=== PATIENT | female | born 1935 | race Caucasian/White ===

== ENCOUNTER → 2017-10-22 | Outpatient (CLI) | payer OTHER ==
[2016-08-17 14:19] VITALS: BP 107/60
--- NOTE | 2017-10-22 11:43 | MG ---
HISTORY: Screening, history of left axillary B-cell lymphoma post radiation/chemotherapy in 2017 Comparison: 05/30/2015, 07/24/2016 FINDINGS: CC and MLO projections of the right and left breast were obtained. Scattered fibroglandular tissue i s present. No significant architectural distortion, mass or clustered microcalcifications can be obs erved to suggest malignancy. No skin thickening or nipple retraction is appreciated. Interval resol ution of previous left axillary lymphadenopathy. Benign calcifications are present. IMPRESSION: NO RADIOGRAPHIC EVIDENCE OF MALIGNANCY. ACR CATEGORY 2: Benign findings. FOLLOW-UP EXAM 1 YEAR. Diagnostic CAD was utilized and reviewed. * 0 (ZERO) - ASSESSMENT INCOMPLETE; ADDITIONAL IMAGING IS NEEDED. * 1/1 (ONE) - NEGATIVE. * 2/II (TWO) - BENIGN FINDINGS. * 3/III (THREE) - PROBABLY BENIGN FINDING; SHORT INTERVAL FOLLOW-UP SUGGESTED. * 4/IV (FOUR) - SUSPICIOUS ABNORMALITY; BIOPSY SHOULD BE CONSIDERED. * 5/V - HIGHLY SUSPICIOUS OF MALIGNANCY; BIOPSY SHOULD BE PERFORMED. A NEGATIVE X-RAY REPORT SHOULD NOT DELAY BIOPSY IF A DOMINANT OR CLINICALLY SUSPICIOUS MASS IS PRESENT; 4 TO 8 PERCENT OF CANCERS ARE NOT IDENTIFIED BY X-RAY. A NEGA TIVE REPORT MAY REINFORCE THE CLINICAL IMPRESSION. ADENOSIS AND DENSE BREASTS MAY OBSCURE AN UNDERLY ING NEOPLASM. Reported By:
== END ==
LOC: RAD 09:50
PROVIDERS: ATTEND Internal Medicine Medical Oncology
DX: Z12.31 Encounter for screening mammogram for malignant neoplasm of breast (principal)
CPT/HCPCS: 77067

== ENCOUNTER 2019-04-13 22:28 | Observation (INO) ==
[2019-04-13 23:05] VITALS: BMI 27.4
--- NOTE | 2019-04-13 23:13 | DR.CP ---
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 These spells have been recurring for the last 2 months. She describes these as a warm burning sensation in the upper abdomen with associated dyspnea but no nausea or vomiting. She states that her BP would get elevated while her pulse drops. She has an apt. to see a day worker on 04/15/19. Reviewed Nurses Notes Review: Yes Source History Provided: Patient Mode of Arrival Mode of Arrival: Ambulatory Timing Came on: Gradually Pain: Resolved Duration Duration: Intermittent How lon Duration: Weeks Location Chest Pain Radiation Location: None Context Onset: At rest Cardiac Risk Factors: HTN PE Risk Factors: None History of: Similar pain in the past Quality Quality: Burning Modifying Factors Worsens: Nothing Impoves: Nothing PMH PMH Past Surgical History: Yes Surgical History: Appendectomy, Cholecystectomy and Hysterectomy Family History Family Medical History: Diabetes Mellitus, [place], Heart Failure and Hypertension Social History Do you use any recreational Drugs:: No ROS Review of Systems Constitutional: No Symptoms Reported Eyes: No Symptoms Reported ENTM: No Symptoms Reported Respiratoy: Short of Breath Cardiovascular: No Symptoms Reported Gastrointestinal/Abdominal: Abdominal Pain (epigastric, burning ) Genitourinary: No Symptoms Reported Neurological: No Symptoms Reported Musculoskeletal: No Symptoms Reported Integumentary: No Symptoms Reported Hematologic/Lymphatic: No Symptoms Reported Endocrine: No Symptoms Reported Psychiatric: No Symptoms Reported PE Vitals Vitals: Temperature 98.9 F Pulse Rate 62 Respiratory Rate 27 Blood Pressure [Left Arm] 107/60 Blood Pressure [Right Arm] 142/72 Blood Pressure 168/74 O2 Sat by Pulse Oximetry 82 General Limitations: No Limitations General Appearance: Alert and In No Apparent Distress Head Head Exam: Normal Inspection, Atraumatic and Normocephalic Eyes Eye exam: Normal Appearance and EOMI ENT ENT Exam: Normal Exam, Normal Oropharynx and Mucous Membranes Moist Chest Chest Inspection: Normal Inspection and Symmetric Chest Wall Rise Respiratory Respiratory Exam: Normal Lung Sounds Bilat Cardiovascular Cardiovascular Exam: Regular Rate, Normal Rhythm, Normal Heart Sounds, +S1 and +S2; negative Bradycardia, Tachycardia, Irregular Rhythm, Systolic Murmur, Diastolic Murmur, Rubs, Gallop, Clicks, JVD, +S3 and +S4 Pulse: Normal Edema: Normal Abdominal Exam Abdominal Exam: Normal Inspection, Normal Bowel Sounds and Soft; negative Distention, Tenderness, Guarding, Rebound, Rigidity, Dimnished Bowel Sounds, Hyperactive Bowel Sounds, Hypoactive Bowel Sounds, Organomegaly, Trauma, Incision, Ascites, Mass, Bruit, Pulsatile Mass, Hernia and Other Extremities Extremities Exam: Normal Inspection and Full ROM Back Back Exam: Normal Inspection and Full ROM Neurologic Neurological Exam: Alert and Oriented X3 Psychiatric Psychiatric Exam: Normal Affect and Normal Mood Skin Skin Exam: Dry and Normal Color MDM Differential Diagnosis Differential Diagnosis: Chest Wall Pain, CHF, Esophageal Reflux/Spasm, Gastritis, Myocardial Infarction and Pancreatitis COURSE Reevaluation 1st: Improved 2nd: Resolved Education/Counseling Education/Counseling: Patient, Education and Counseling Educated On: Treatment, Diagnosis, Prognosis and Needs for Follow Up ROR Labs Reviewed Laboratory Results Reviewed?: Yes Result Diagrams: 04/13/19 23:07 04/13/19 23:07 Laboratory: WBC 5.4 X10^3/uL (3.6-10.0) 04/13/19 23:07 RBC 4.60 X10^6/uL (3.5-5.4) 04/13/19 23:07 Hgb 14.7 g/dL (12.0-16.0) 04/13/19 23:07 Hct 42.7 % (36.0-47.0) 04/13/19 23:07 MCV 92.7 fL (80.0-100.0) 04/13/19 23:07 MCH 31.9 pg (27.0-34.0) 04/13/19 23:07 MCHC 34.4 g/dL (33.0-35.0) 04/13/19 23:07 RDW 12.7 % (11.6-16.5) 04/13/19 23:07 Plt Count 161 X10^3/uL (150.0-450.0) 04/13/19 23:07 MPV 9.0 fL (7.4-11.0) 04/13/19 23:07 Neut % (Auto) 61.6 % (42.0-75.0) 04/13/19 23:07 Lymph % (Auto) 27.3 % (21.0-51.0) 04/13/19 23:07 [place] % (Auto) 7.8 % (0.0-13.0) 04/13/19 23:07 Eos % (Auto) 2.7 % (0.9-2.9) 04/13/19 23:07 Baso % (Auto) 0.6 % (0.2-1.0) 04/13/19 23:07 Neut # (Auto) 3.3 x10^3/uL (2.2-4.8) 04/13/19 23:07 Lymph # (Auto) 1.5 X10^3/uL (1.3-2.9) 04/13/19 23:07 [place] # (Auto) 0.4 x10^3/uL (0.3-0.8) 04/13/19 23:07 Eos # (Auto) 0.1 x10^3/uL (0.0-0.2) 04/13/19 23:07 Baso # (Auto) 0.0 X10^3/uL (0.0-0.1) 04/13/19 23:07 Absolute Nucleated RBC 0.1 /100WBC 04/13/19 23:07 PT 30.2 SECONDS (11.8-14.3) 04/13/19 23:07 INR Target Range - 04/13/19 23:07 INR 3.00 (0.8-1.3) H 04/13/19 23:07 APTT 26.0 SECONDS (22.9-36.5) 04/13/19 23:07 PTT Comment - 04/13/19 23:07 Sodium 139 mmol/L (136-145) 04/13/19 23:07 Corrected Sodium 139 mmol/L (136-145) 04/13/19 23:07 Potassium 4.2 mmol/L (3.5-5.1) 04/13/19 23:07 Chloride 103 mmol/L (98-107) 04/13/19 23:07 Carbon Dioxide 26.6 mmol/L (21-32) 04/13/19 23:07 BUN 21 mg/dL (7-18) H 04/13/19 23:07 Creatinine 1.28 mg/dL (0.55-1.02) H 04/13/19 23:07 Est GFR (MDRD) Af Amer 51 (>60) L 04/13/19 23:07 Est GFR (MDRD) Non-Af 42 (>60) L 04/13/19 23:07 Glucose 113 mg/dL (65-99) H 04/13/19 23:07 Calcium 8.5 mg/dL (8.5-10.1) 04/13/19 23:07 Corrected Calcium TNP 04/13/19 23:07 Total Bilirubin 0.20 mg/dL (0.2-1.0) 04/13/19 23:07 AST 11 Units/L (15-37) L 04/13/19 23:07 ALT 14 Units/L (12-78) 04/13/19 23:07 Alkaline Phosphatase 71 Units/L (46-116) 04/13/19 23:07 Creatine Kinase 68 Units/L (26-192) 04/13/19 23:07 CK-MB (CK-2) 1.2 ng/mL (0-4.0) 04/13/19 23:07 CK/CKMB % Calc 1.8 % (<4) 04/13/19 23:07 Troponin I < 0.02 ng/mL (0-1.5) 04/13/19 23:07 Total Protein 6.6 g/dL (6.4-8.2) 04/13/19 23:07 Albumin 3.4 g/dL (3.4-5.0) 04/13/19 23:07 Globulin 3.2 g/dL (2.5-4.5) 04/13/19 23:07 Albumin/Globulin Ratio 1.1 Ratio (1.1-2.1) 04/13/19 23:07 Amylase 56 Units/L (25-115) 04/13/19 23:07 Lipase 250 Units/L (73-393) 04/13/19 23:07 Other Results Comments: chronic interstitial lung changes and calcified pulmonary nodule within the periphery Lt. mid lung w/o acute airspace disease or CHF. XRAY XRAY Interpreted by: Radiologist XRAY Findings: chronic interstitial lung changes and calcified pulm. nodule w ithing periph EKG Rate: 70 [place]: Normal Rhythm: NSR and PVCs Block: None Hypertrophy: None ST: Normal Opioid Opioid Risk Tool Total: 0 Total Score Risk Category: Low Risk Copyright: Dumont LR predicting aberrant behaviors Diagnosis Discharge Problem: Arthritis of multiple sites Chest pain Qualifiers: Chest pain type: unspecified Qualified Code(s): R07.9 - Chest pain, unspecified Hypertension Qualifiers: Hypertension type: essential hypertension Qualified Code(s): I10 - Essential (primary) hypertension Hypothyroidism Qualifiers: Hypothyroidism type: acquired Qualified Code(s): E03.9 - Hypothyroidism, unspecified Instructions Forms: Excuse From Work
[2019-04-13 23:26] LABS: BASOPHILS % (AUTO) 0.6 % (0.2-1.0); EOSINOPHILS # (AUTO) 0.1 x10^3/uL (0.0-0.2); EOSINOPHILS % (AUTO) 2.7 % (0.9-2.9); HEMATOCRIT 42.7 % (36.0-47.0); HEMOGLOBIN 14.7 g/dL (12.0-16.0); LYMPHOCYTES # (AUTO) 1.5 X10^3/uL (1.3-2.9); LYMPHOCYTES % (AUTO) 27.3 % (21.0-51.0); MEAN CORPUSCULAR HEMOGLOBIN 31.9 pg (27.0-34.0); MEAN CORPUSCULAR HGB CONC 34.4 g/dL (33.0-35.0); MEAN CORPUSCULAR VOLUME 92.7 fL (80.0-100.0); MONOCYTES # (AUTO) 0.4 x10^3/uL (0.3-0.8); MONOCYTES % (AUTO) 7.8 % (0.0-13.0); NEUTROPHILS # (AUTO) 3.3 x10^3/uL (2.2-4.8); NEUTROPHILS % (AUTO) 61.6 % (42.0-75.0); PLATELET COUNT 161 X10^3/uL (150.0-450.0); RED CELL DISTRIBUTION WIDTH 12.7 % (11.6-16.5); WHITE BLOOD COUNT 5.4 X10^3/uL (3.6-10.0)
--- NOTE | 2019-04-13 23:30 | RAD ---
AP chest. Indication: Mid sternal chest pain Findings: Trachea is midline. Heart size is normal. Chronic interstitial lung changes are noted. Calcified pulmonary nodules noted within periphery left mid lung. There is mild scarring/subsegmental atelectasis within the left lung base. No effusion or pneumothorax. No acute osseous abnormality. Interval removal of right-sided chest wall MediPort. Impression: Chronic interstitial lung changes and calcified pulmonary nodule within the periphery left mid lung without acute airspace disease or CHF. Reported By:
[2019-04-13 23:34] LABS: ALANINE AMINOTRANSFERASE 14 Units/L (12-78); ALBUMIN 3.4 g/dL (3.4-5.0); ALKALINE PHOSPHATASE 71 Units/L (46-116); AMYLASE 56 Units/L (25-115); ASPARTATE AMINO TRANSFERASE 11 Units/L (15-37); BLOOD UREA NITROGEN 21 mg/dL (7-18); CALCIUM 8.5 mg/dL (8.5-10.1); CARBON DIOXIDE 26.6 mmol/L (21-32); CHLORIDE 103 mmol/L (98-107); COR NA(FOR HYPERGLY) 139 mmol/L (136-145); CREATININE 1.28 mg/dL (0.55-1.02); LIPASE 250 Units/L (73-393); SODIUM 139 mmol/L (136-145); TOTAL PROTEIN 6.6 g/dL (6.4-8.2); eGFR NON BLACK RACES 42 (>60)
[2019-04-14 00:20] LABS: CKMB % 1.8 % (<4); CREATINE KINASE 68 Units/L (26-192); CREATINE KINASE MB 1.2 ng/mL (0-4.0); TROPONIN I < 0.02 ng/mL (0-1.5)
[2019-04-14] MEDS ORDERED: NITROSTAT SL PRN (01:16)
[2019-04-14] MEDS ORDERED: NEURONTIN CAP 100 MG PO SCH (02:00)
[2019-04-14 05:17] LABS: ALANINE AMINOTRANSFERASE 13 Units/L (12-78); ALBUMIN 3.3 g/dL (3.4-5.0); ALKALINE PHOSPHATASE 68 Units/L (46-116); ASPARTATE AMINO TRANSFERASE 10 Units/L (15-37); BLOOD UREA NITROGEN 18 mg/dL (7-18); CALCIUM 8.5 mg/dL (8.5-10.1); CARBON DIOXIDE 26.7 mmol/L (21-32); CHLORIDE 104 mmol/L (98-107); CHOL/HDL RATIO 4.1 (0.0-5.0); CHOLESTEROL 159 mg/dL (0-200); CKMB % 1.9 % (<4); COR CA(FOR HYPOALB) 9.1 mg/dL (8.5-10.1); CREATINE KINASE 52 Units/L (26-192); CREATINE KINASE MB < 1.0 ng/mL (0-4.0); CREATININE 0.96 mg/dL (0.55-1.02); HDL CHOLESTEROL 39 mg/dL (40-60); SODIUM 139 mmol/L (136-145); TOTAL PROTEIN 6.4 g/dL (6.4-8.2); TRIGLYCERIDES 154 mg/dL (0-150); TROPONIN I < 0.02 ng/mL (0-1.5); eGFR NON BLACK RACES 59 (>60)
[2019-04-14] MEDS ORDERED: ASPIRIN EC 81 MG PO SCH (09:00)
[2019-04-14] MEDS ORDERED: SYNTHROID 25 mcg TAB PO SCH (09:00)
[2019-04-14] MEDS ORDERED: MOBIC TAB 15 MG PO SCH (09:00)
[2019-04-14] MEDS ORDERED: ALDACTONE TAB 25 MG PO SCH (09:00)
[2019-04-14] MEDS ORDERED: LOVENOX INJ 40 MG SYR SC SCH (09:00)
--- NOTE | 2019-04-14 11:06 | CT ---
History: Chest pain Exam: CTA chest Comparison: None Technique: Axial spiral images were obtained from the level above the clavicles through the adrenals after bolus administration of IV contrast. Automated dose control was utilized. Findings: The aorta is well opacified with mild calcified plaque throughout . There is mild aneurysmal dilatation of the ascending aorta measuring up to 4 cm. No dissection is seen. The pulmonary arteries are well opacified with no filling defect or vessel cut off . There is no mediastinal mass or adenopathy. The adrenals are normal . The lungs are hyperinflated and emphysematous . There is motion artifact throughout the exam . There are mild linear densities along the lung bases anterior laterally. No pulmonary nodule or mass is seen . There are moderate degenerative changes seen in the spine with no aggressive osseous lesion. IMPRESSION: Motion artifact limiting the exam. No evidence of a pulmonary embolus . Mildly atherosclerotic thoracic aorta with mild aneurysmal dilatation of the ascending aorta measuring up to 4 cm . No dissection is seen. Recommend short-term follow-up to assure stability . No mediastinal mass or adenopathy . COPD with mild discoid atelectasis or scarring along the lung bases. Reported By:
[2019-04-14 11:53] LABS: CKMB % 1.9 % (<4); CREATINE KINASE 54 Units/L (26-192); TROPONIN I < 0.02 ng/mL (0-1.5)
--- NOTE | 2019-04-14 15:53 | DR.H&P ---
H&P - History & Physical for Day of: H&P Date: 04/14/19 - Chief Complaint Chief Complaint: chest pain - History of Present Illness History of Present Illness: 84 WF ER ADMISSION AFTER PRESENTING WITH CO CHEST PAIN, ONSET WHILE AT REST. PT STATES SHE WAS WATCHING TV WHEN CHEST PAIN STARTED, RADIATES TO MIDBACK, CAUSING SOB, BROKE OUT IN A SWEAT, BECAME VERY WEAK AND NAUSEATED AFTER EPISODE. PT STATES SHE HAD BEEN HAVING EPISODES OF CHEST PAIN, PREVIOUS WORSE WITH EXERTION. PT REPORTS INCREASED FATIGUE AND FREEMAN. PT HAS PMH OF ASTHMA AND NON HODGKINS LYMPHOMA ,CURRENTLY IN REMISSION. PT HAS BEEN SEEN AT [facility] WITHIN LAST 6MOS, HAD ECHO. PT CANNOT REMEMBER LAST HEART CATH, BUT DENIES ANY INTERVENTION. PT ADMITTED FOR EVALUATION OF CP, R/O AMI - Past Medical History Past Medical History: Arthritis, Asthma, COPD, Hypertension, Hypothyroidism - Past Surgical History Surgical History: Appendectomy, Bowel Resection, Cholecystectomy, Hysterectomy, Ortho Surgery, Other - Family History Family Medical History: Diabetes Mellitus, Cancer, Hypertension - Social History Does patient currently use any type of tobacco product: No Have you used tobacco products in the last 12 months: No Type of Tobacco Use: None Does any household member use tobacco: No Alcohol Use: None Drug Use: None - Medications Home Medications: hydromorphone [From Dilaudid] Allergy (Verified 04/13/19 22:46) risedronate sodium [From Actonel] Allergy (Verified 04/13/19 22:55) TAPE Allergy (Unknown, Uncoded 03/09/13 19:44) CONTINUE taking the following medications gabapentin 300 mg PO QHS 04/13/19 [History] levothyroxine 25 mcg PO DAILY 04/13/19 [History] meloxicam 15 mg PO DAILY 04/13/19 [History] spironolactone 25 mg PO DAILY 04/13/19 [History] aspirin [Aspirin Childrens] 162 mg PO DAILY 04/14/19 [History] - Review of Systems Constitutional: Weakness Eyes: No Symptoms Reported ENT: No Symptoms Reported Respiratory: Shortness of Breath, SOB with Excertion Cardiovascular: Chest Pain, Light Headedness Gastrointestinal: No Symptoms Reported Genitourinary: No Symptoms Reported Musculoskeletal: No Symptoms Reported Skin: No Symptoms Reported Neurological: Weakness - Physical Exam Vital Signs: Temperature 98.1 F Pulse Rate [Apical] 63 Pulse Rate 54 Respiratory Rate 22 Blood Pressure [Left Arm] 168/74 Blood Pressure [Right Arm] 142/72 Blood Pressure 119/64 O2 Sat by Pulse Oximetry 95 Oriented: Normal Eyes: Normal Ear: Normal Nose: Normal Throat: Normal Respiratory: Clear Throughout Cardiovascular: Normal. negative: Edema : Normal Auscultation: Bowel Sounds: Normal Palpation: Normal Tenderness: Normal Skin: Normal Musculoskeletal: Normal Psychiatric: Normal Speech Pattern: Clear, Appropriate - Assessment/Plan (1) Chest pain Qualifiers: Chest pain type: unspecified Qualified Code(s): R07.9 - Chest pain, unspecified Status: Acute Plan: ADMIT, SERIAL CE AND EKG. CXR ON ADMISSION, BP CONTROL. LOVENOX PROPHALAXIS. CONTINUOUS SUPPLEMENTAL O2. VERIFY HOME MEDICATION, CTA CHEST WITH CONTRAST (2) FREEMAN (dyspnea on exertion) Status: Acute (3) Hypertension Qualifiers: Hypertension type: essential hypertension Qualified Code(s): I10 - Essential (primary) hypertension Status: Acute - Allergies Allergies/Adverse Reactions: Allergies Allergy/AdvReac Type Severity Reaction Status Date / Time hydromorphone [From Dilaudid] Allergy Verified 04/13/19 22:46 risedronate sodium Allergy Verified 04/13/19 22:55 [From Actonel] TAPE Allergy Unknown Uncoded 03/09/13 19:44
[2019-04-14 16:35] VITALS: BP 121/64
[2019-04-14] MEDS ORDERED: NEURONTIN CAP 300 MG PO SCH (21:00)
== END 2019-04-14 16:20 | disposition short-term general hospital (02) ==
LOC: ER 22:29 → ICU 22:29
PROVIDERS: ADMIT Internal Medicine; ATTEND Internal Medicine
DX: R07.89 Other chest pain; Z85.72 Personal history of non-Hodgkin lymphomas; R06.02 Shortness of breath; M15.8 Other polyosteoarthritis; R79.1 Abnormal coagulation profile; R94.31 Abnormal electrocardiogram [ECG] [EKG]; I10 Essential (primary) hypertension; J44.9 Chronic obstructive pulmonary disease, unspecified; R94.4 Abnormal results of kidney function studies; E03.8 Other specified hypothyroidism
CPT/HCPCS: 36415; 71010; 71045; 71275; 80053; 80061; 82150; 82550; 82553; 83690; 84484; 85025; 85610; 85730; 93005; 96365; 96372; 99284; A4216; A4222; G0378; J1650